=== PATIENT | female | born 1925 | race Caucasian/White ===

== ENCOUNTER → 2017-05-11 | Outpatient (CLI) | payer OTHER ==
--- NOTE | 2017-05-11 15:24 | CT ---
CT abdomen and pelvis without contrast INDICATION: Bilateral inguinal hernia TECHNIQUE: Helical CT images through the abdomen and pelvis without contrast with coronal and sagittal reformats This exam was performed according to our departmental dose-optimization program, which includes automated exposure control, adjustment of the mA and/or kV according to patient size and/or use of iterative reconstruction technique. FINDINGS: Moderate hiatal hernia. Mild scarring and atelectasis in the bases. Prominent tortuosity and atherosclerotic disease of the aortoiliac vessels. Spleen is normal in size. Pancreas is unremarkable. Liver is unremarkable. Limited visualization of the gallbladder but no inflammation identified in the right upper quadrant. Possible surgical clips right upper quadrant series 2 image #20 question interval cholecystectomy since 2014 study. Kidneys are slightly small without definite mass or obstruction. No active bowel inflammation mass or obstruction noted. No bowel hernia is noted. There is a small amount of fat in both inguinal canal regions likely from small amount of omental fat herniation. No evidence of adnexal mass in the pelvis. No destructive osseous lesion or acute fracture. Multilevel prominent degenerative disc disease and spondylosis. Severe destructive endplate changes with marked sclerosis probably mechanical T12-L1 and L1-L2 with vacuum phenomenon. Dedicated MRI lumbar spine may be considered for further characterization. IMPRESSION: Severe degenerative changes lumbar spine with erosive endplate changes and vacuum phenomenon T12-L1 and L1-L2 see above discussion Moderate hiatal hernia Mild fat within the inguinal regions likely mild omental fat herniation without bowel herniation Possible gallbladder clips right upper quadrant Electronically signed by: Tree Sherman MD 05/11/2017 3:23 PM CDT
== END | disposition home or self-care (01) ==
LOC: RAD 12:05
PROVIDERS: ATTEND Family Medicine
DX: K40.20 Bilateral inguinal hernia, without obstruction or gangrene, not specified as recurrent (principal)